=== PATIENT | male | born 1950 | race Caucasian/White ===

== ENCOUNTER 2017-06-16 11:15 | Outpatient (CLI) | payer MEDICARE, OTHER ==
[2017-06-16 12:31] LABS: ALBUMIN/GLOBULIN RATIO 1.4 (1.0-2.2); BILIRUBIN,TOTAL 0.8 mg/dL (0.2-1.0); BUN - BLOOD UREA NITROGEN 15 mg/dL (6-20); CARBON DIOXIDE - CO2 31 mmol/L (21-32); CHLORIDE 105 mmol/L (101-111); CHOL/HDL RATIO 6.4 (<5.0); CHOLESTEROL 262 mg/dL; GFR - MDRD 75 (>89); GLUCOSE 100 mg/dL (70-100); HDL CHOLESTEROL 41 mg/dL; LDL/HDL RATIO 5.1 (<3.6); POTASSIUM 4.5 mmol/L (3.5-5.0); SODIUM 141 mmol/L (135-145); TOTAL PROTEIN 6.8 g/dL (6.7-8.2); TRIGLYCERIDES 58 mg/dL; VLDL CHOLESTEROL 12 mg/dL
== END 2017-06-16 11:16 | disposition home or self-care (01) ==
LOC: LAB 11:15
PROVIDERS: ATTEND Family Medicine
DX: E78.5 Hyperlipidemia, unspecified (principal); R97.20 Elevated prostate specific antigen [PSA]
CPT/HCPCS: 36415; 80053; 80061; G0103; 84153

== ENCOUNTER 2017-07-28 12:15 | Outpatient (CLI) | payer MEDICARE, OTHER | END 2017-07-28 12:16 | disposition home or self-care (01) | LOC: LAB.WCP 12:15 | PROVIDERS: ATTEND Family Medicine | DX: N39.0 Urinary tract infection, site not specified (principal) | CPT/HCPCS: 87086 ==

== ENCOUNTER 2018-09-04 11:35 | Outpatient (CLI) | payer MEDICARE, OTHER ==
[2018-09-04 12:32] LABS: ALBUMIN 4.1 g/dL (3.2-5.5); ALBUMIN/GLOBULIN RATIO 1.6 (1.0-2.2); ALKALINE PHOSPHATASE 65 IU/L (42-121); ALT ALANINE AMINOTRANSFERASE 26 IU/L (10-60); AST ASPARTATE AMINOTRANSFERASE 25 IU/L (10-42); BILIRUBIN,TOTAL 0.8 mg/dL (0.2-1.0); BUN - BLOOD UREA NITROGEN 15 mg/dL (6-20); CALCIUM 9.1 mg/dL (8.5-10.3); CARBON DIOXIDE - CO2 31 mmol/L (21-32); CHLORIDE 102 mmol/L (101-111); CHOL/HDL RATIO 5.9 (<5.0); CHOLESTEROL 253 mg/dL; CREATININE 1.1 mg/dL (0.6-1.2); GFR - MDRD 67 (>89); GLUCOSE 98 mg/dL (70-100); HDL CHOLESTEROL 43 mg/dL; LDL CHOLESTEROL,CALCULATED 195 mg/dL; LDL/HDL RATIO 4.5 (<3.6); SODIUM 142 mmol/L (135-145); TOTAL PROTEIN 6.6 g/dL (6.7-8.2); VLDL CHOLESTEROL 15 mg/dL
== END 2018-09-04 11:36 | disposition home or self-care (01) ==
LOC: LAB 11:35
PROVIDERS: ATTEND Family Medicine
DX: E78.5 Hyperlipidemia, unspecified (principal); R97.20 Elevated prostate specific antigen [PSA]
CPT/HCPCS: 36415; 80053; 80061; 83721; 84153

== ENCOUNTER 2019-08-07 11:44 | Outpatient (CLI) | payer MEDICARE, OTHER ==
[2019-08-07 12:57] LABS: ALBUMIN 4.1 g/dL (3.2-5.5); ALBUMIN/GLOBULIN RATIO 1.5 (1.0-2.2); ALKALINE PHOSPHATASE 59 IU/L (42-121); ALT ALANINE AMINOTRANSFERASE 25 IU/L (10-60); AST ASPARTATE AMINOTRANSFERASE 22 IU/L (10-42); BILIRUBIN,TOTAL 0.6 mg/dL (0.2-1.0); BUN - BLOOD UREA NITROGEN 13 mg/dL (6-20); CALCIUM 9.1 mg/dL (8.5-10.3); CARBON DIOXIDE - CO2 31 mmol/L (21-32); CHLORIDE 102 mmol/L (101-111); CHOL/HDL RATIO 6.2 (<5.0); CHOLESTEROL 290 mg/dL; GFR - MDRD 74 (>89); GLUCOSE 96 mg/dL (70-100); HDL CHOLESTEROL 47 mg/dL; LDL CHOLESTEROL,CALCULATED 217 mg/dL; LDL/HDL RATIO 4.6 (<3.6); SODIUM 140 mmol/L (135-145); TOTAL PROTEIN 6.8 g/dL (6.7-8.2); VLDL CHOLESTEROL 26 mg/dL
== END 2019-08-07 11:45 | disposition home or self-care (01) ==
LOC: LAB 11:44
PROVIDERS: ATTEND Family Medicine
DX: E78.5 Hyperlipidemia, unspecified (principal); R97.20 Elevated prostate specific antigen [PSA]
CPT/HCPCS: 36415; 80053; 80061; 83721; 84153

== ENCOUNTER 2020-06-23 07:00 | Outpatient (CLI) | payer MEDICARE, OTHER | END 2020-06-23 23:59 | disposition home or self-care (01) | LOC: LAB.R 07:00 | PROVIDERS: ATTEND Physician Assistant Medical | DX: R30.0 Dysuria (principal) | CPT/HCPCS: 87077; 87086 ==

== ENCOUNTER 2020-06-23 08:00 | Outpatient (CLI) | payer MEDICARE, OTHER | END 2020-06-23 23:59 | disposition home or self-care (01) | LOC: LAB.WCP 08:00 | PROVIDERS: ATTEND Physician Assistant Medical | DX: R30.0 Dysuria (principal) | CPT/HCPCS: 81002 ==

== ENCOUNTER 2020-06-30 08:00 | Outpatient (CLI) | payer MEDICARE, OTHER | END 2020-06-30 23:59 | disposition home or self-care (01) | LOC: LAB.R 08:00 | PROVIDERS: ATTEND Nurse Practitioner Family | DX: R30.0 Dysuria (principal) | CPT/HCPCS: 87086 ==

== ENCOUNTER 2021-02-02 08:00 | Outpatient (CLI) | payer MEDICARE, OTHER ==
[2021-02-02 19:25] LABS: ALBUMIN 4.3 g/dL (3.2-5.5); ALBUMIN/GLOBULIN RATIO 1.7 (1.0-2.2); ALKALINE PHOSPHATASE 66 IU/L (42-121); ALT ALANINE AMINOTRANSFERASE 24 IU/L (10-60); AST ASPARTATE AMINOTRANSFERASE 24 IU/L (10-42); BILIRUBIN,TOTAL 0.7 mg/dL (0.2-1.0); BUN - BLOOD UREA NITROGEN 13 mg/dL (6-20); CALCIUM 9.2 mg/dL (8.5-10.3); CARBON DIOXIDE - CO2 29 mmol/L (21-32); CHLORIDE 104 mmol/L (101-111); CHOL/HDL RATIO 4.1 (<5.0); CHOLESTEROL 177 mg/dL; CREATININE 1.1 mg/dL (0.6-1.2); GFR - MDRD 66 (>89); GLUCOSE 68 mg/dL (70-100); HDL CHOLESTEROL 43 mg/dL; LDL CHOLESTEROL,CALCULATED 118 mg/dL; LDL/HDL RATIO 2.7 (<3.6); POTASSIUM 3.8 mmol/L (3.5-5.0); SODIUM 141 mmol/L (135-145); TOTAL PROTEIN 6.9 g/dL (6.7-8.2); TRIGLYCERIDES 82 mg/dL; VLDL CHOLESTEROL 16 mg/dL
== END 2021-02-02 23:59 | disposition home or self-care (01) ==
LOC: LAB.WCP 08:00
PROVIDERS: ATTEND Family Medicine
DX: E78.49 Other hyperlipidemia (principal); R97.20 Elevated prostate specific antigen [PSA]
CPT/HCPCS: 36415; 80053; 80061; 83721; G0103; 84153

== ENCOUNTER 2021-12-09 08:00 | Outpatient (CLI) | payer MEDICARE, OTHER | END 2021-12-09 23:59 | LOC: LAB.N 08:00 | PROVIDERS: ATTEND Family Medicine | DX: R30.0 Dysuria (principal) | CPT/HCPCS: 87077; 87086 ==

== ENCOUNTER 2022-02-21 13:03 | Emergency (ER) | payer MEDICARE, OTHER ==
[2022-02-21] MEDS ORDERED: DEXAMETHASONE 10 MG/ML VIAL PO STA (13:35)
[2022-02-21] MEDS ORDERED: BENZONATATE 100 MG CAPSULE PO STA (13:35)
[2022-02-21] MEDS ORDERED: PSEUDOEPHEDRINE 30 MG TABLET PO STA (13:35)
[2022-02-21] MEDS ORDERED: CHERRY SYRUP 10 ML UDC PO ONE (13:35)
--- NOTE | 2022-02-21 13:39 | ED Physician Documentation ---
History of Present Illness - Stated complaint Stated Complaint: EAR PX/COUGH/SORE THROAT - Chief complaint Chief Complaint: Heent - History obtained from History obtained from: Patient, Family - History of Present Illness Pain level max: 6 Pain level now: 4 - Additonal information Additional information: Patient is a 71-year-old gentleman brought in to the emergency department with his today. He states that for the past several days he has had a sore throat, dry cough, right ear pain. Nothing seems to make it better or worse. Denies any fevers to me. He does have a catheter in place, urology is monitoring and managing this. He had been on antibiotics recently for UTI. No back pain or abdominal pain. Has had both Covid vaccinations and booster. No known Covid exposures. Review of Systems Constitutional: denies: Fever Nose: reports: Congestion Throat: reports: Sore throat Respiratory: reports: Cough GI: denies: Abdominal Pain, Nausea, Vomiting, Diarrhea, Hematemesis : denies: Dysuria, Frequency, Hesitancy Skin: denies: Rash Musculoskeletal: denies: Neck pain, Back pain Neurologic: reports: Headache (headache yesterday, none today) PD PAST MEDICAL HISTORY - Past Medical History Past Medical History: Yes Cardiovascular: Other Respiratory: None Endocrine/Autoimmune: None GI: None : None HEENT: None Psych: None Musculoskeletal: None Derm: None - Past Surgical History HEENT: Tonsil/Adenoidectomy - Present Medications Home Medications: Ambulatory Orders Medication Instructions Recorded Confirmed Benzonatate [Tessalon] 200 mg PO TID PRN #30 cap 02/21/22 Cetirizine HCl/Pseudoephedrine 1 each PO BID PRN #30 ea 02/21/22 [Zyrtec-D Tablet] Rosuvastatin Calcium [Ezallor 10 mg PO DAILY 02/21/22 02/21/22 Sprinkle] Tamsulosin [Flomax] 0.4 mg PO DAILY 02/21/22 02/21/22 - Allergies Allergies/Adverse Reactions: Allergies Allergy/AdvReac Type Severity Reaction Status Date / Time No Known Drug Allergies Allergy Verified 02/21/22 13:13 PD ED PE NORMAL - Vitals Vital signs reviewed: Yes - General General: Alert and oriented X 3, No acute distress, Well developed/nourished - HEENT HEENT: PERRL, Moist mucous membranes, Other (Left TM is normal. Right TM is bulging with clear fluid. No erythema. No purulence. The oropharynx shows erythema to the right peritonsillar area. Uvula midline. Normal phonation. No trismus. No exudates) - Neck Neck: Supple, no meningeal sign - Cardiac Cardiac: RRR, Strong equal pulses - Respiratory Respiratory: No respiratory distress, Clear bilaterally - Abdomen Abdomen: Soft, Non tender, Non distended - Back Back: No CVA TTP - Derm Derm: Warm and dry - Extremities Extremities: No edema - Neuro Neuro: Alert and oriented X 3 - Psych Psych: Normal mood, Normal affect Results - Vitals Vitals: Vital Signs - 24 hr 02/21/22 02/21/22 13:07 15:13 Temperature 36.7 C 36.8 C Heart Rate 114 H 102 H Respiratory 18 18 Rate Blood Pressure 141/87 H 147/87 H O2 Saturation 95 97 Oxygen O2 Source Room air - Labs Labs: Laboratory Tests 02/21/22 13:53 Group A Strep Rapid Negative - Rads (name of study) Chest x-ray Radiology: Final report received, EMP read contemporaneously, See rad report (Right lower lobe scarring versus atelectasis.) PD MEDICAL DECISION MAKING - ED course Complexity details: reviewed results, re-evaluated patient, considered differential, d/w patient ED course: Patient is well-appearing, nontoxic. Afebrile. No hypoxia. No respiratory distress. Covid test sent. Negative rapid strep. Negative chest x-ray. Will place on decongestants and cough medication for home. We will continue supportive care. Patient counseled regarding signs and symptoms for which I believe and urgent re-evaluation would be necessary. Patient with good understanding of and agreement to plan and is comfortable going home at this time This document was made in part using voice recognition software. While efforts are made to proofread this document, sound alike and grammatical errors may occur. Departure - Departure Disposition: 01 Home, Self Care Clinical Impression: Viral URI Condition: Good Instructions: ED Viral Syndrome Follow-Up: your,dooctor in 1 week [Other] Prescriptions: Benzonatate [Tessalon] 200 mg PO TID PRN #30 cap PRN Reason: Cough Cetirizine HCl/Pseudoephedrine [Zyrtec-D Tablet] 1 each PO BID PRN #30 ea PRN Reason: nasal congestion Comments: Drink plenty of fluids. Return if you worsen. You can use Motrin or Tylenol as needed for pain. The decongestant should help as well. Your Covid test will be back in 1 to 2 days, you can check your results at the patient portal on the [employer] website . Your prescriptions were sent to the [facility] pharmacy. Discharge Date/Time: 02/21/22 15:15
[2022-02-21 14:17] LABS: RAPID STREP SCREEN Negative (Negative)
--- NOTE | 2022-02-21 14:28 | XRAY Report ---
PROCEDURE: Chest 2 View X-Ray INDICATIONS: cough TECHNIQUE: 2 view(s) of the chest. COMPARISON: None. FINDINGS: SUPPORT DEVICES: None. LUNGS/PLEURA: Linear density in the right lower lung zone, compatible plate atelectasis/scar. No foca l consolidation, pleural effusion or space-occupying pneumothorax. MEDIASTINUM: The cardiomediastinal silhouette is within normal limits. BONES/SOFT TISSUES: No acute abnormality. IMPRESSION: 1.Right basilar plate atelectasis/scar. Reviewed by: Matt Alatorre MD on 02/21/2022 2:27 PM PDT Approved by: Matt Alatorre MD on 02/21/2022 2:27 PM PDT Station ID: [id number]
[2022-02-21 15:15] VITALS: BP 147/87
== END 2022-02-21 15:15 | disposition home or self-care (01) ==
LOC: ED 13:03
DX: J06.9 Acute upper respiratory infection, unspecified (principal); Z20.822 Contact with and (suspected) exposure to COVID-19
CPT/HCPCS: 71046; 87070; 87430; 99283; 99284; A9270; U0004

== ENCOUNTER 2022-03-04 18:08 | Emergency (ER) | payer MEDICARE, OTHER ==
[2022-03-04] MEDS ORDERED: FAMOTIDINE 20 MG TABLET PO STA (18:53)
[2022-03-04] MEDS ORDERED: LIDOCAINE VISCOUS 2% 15 ML UDC MM STA (18:53)
[2022-03-04] MEDS ORDERED: MAG HYDROX/AL HYDROX/SIMETH 30 ML UDC PO STA (18:53)
[2022-03-04] MEDS ORDERED: SUCRALFATE 1 GM/10 ML UDC PO STA (18:53)
[2022-03-04 19:11] LABS: BILIRUBIN,URINE NEGATIVE (NEGATIVE); GLUCOSE, URINE (UA) NEGATIVE (NEGATIVE); KETONES,URINE (UA) NEGATIVE (NEGATIVE); LEUKOCYTE ESTERASE, URINE SMALL (NEGATIVE); NITRITE,URINE NEGATIVE (NEGATIVE); OCCULT BLOOD,URINE MODERATE (NEGATIVE); PROTEIN,URINE 100 mg/dL (NEGATIVE); UROBILINOGEN,URINE 0.2 (NORMAL) E.U./dL (NORMAL)
[2022-03-04 19:13] LABS: CLARITY,URINE SL. CLOUDY (CLEAR)
--- NOTE | 2022-03-04 19:13 | XRAY Report ---
PROCEDURE: Chest 2 View X-Ray INDICATIONS: cough TECHNIQUE: 2 view(s) of the chest. COMPARISON: 02/21/2022.. FINDINGS: Surgical changes and devices: None. Lungs and pleura: No pleural effusions or pneumothorax. Focal opacity noted in the left lung base co ncerning for pneumonia. Linear opacity noted in the right middle lobe likely represent atelectasis. Mediastinum: Mediastinal contours are normal. Heart size is normal. Bones and chest wall: No suspicious bony abnormalities. Soft tissues appear unremarkable. IMPRESSION: 1. Left lower lobe pneumonia. 2. Right middle lobe atelectasis. Reviewed by: Vickie Germain MD, PhD on 03/04/2022 7:12 PM PDT Approved by: Vickie Germain MD, PhD on 03/04/2022 7:12 PM PDT Station ID: [id number]
[2022-03-04 19:15] LABS: BASOPHILS % (AUTO) 0.3 %; EOSINOPHILS # (AUTO) 0.2 10^3/uL (0.0-0.7); HCT - HEMATOCRIT 43.7 % (42.0-52.0); HGB - HEMOGLOBIN 14.2 g/dL (14.0-18.0); LYMPHOCYTES # (AUTO) 1.2 10^3/uL (1.5-3.5); LYMPHOCYTES % (AUTO) 15.8 %; MEAN CORPUSCULAR HGB CONC 32.5 g/dL (32.0-36.0); MEAN CORPUSCULAR VOLUME 89.2 fL (80.0-94.0); MEAN PLATELET VOLUME 9.5 fL (7.4-11.4); MONOCYTES # (AUTO) 0.7 10^3/uL (0.0-1.0); MONOCYTES % (AUTO) 8.9 %; NEUTROPHILS # (AUTO) 5.5 10^3/uL (1.5-6.6); NEUTROPHILS % (AUTO) 71.9 %; PLT - PLATELET COUNT 269 10^3/uL (130-450); RED CELL DISTRIBUTION WIDTH 12.3 % (12.0-15.0); WHITE BLOOD COUNT 7.7 x10^3/uL (4.8-10.8)
[2022-03-04 19:22] LABS: BACTERIA,URINE Few /HPF (None Seen); RBC,URINE TNTC /HPF (0-5); SQUAMOUS EPITHELIAL CELL,UR RARE Squamous (<= Few); WBC CLUMPS,URINE PRESENT; WBC,URINE >25 /HPF (0-3)
--- NOTE | 2022-03-04 19:28 | ED Physician Documentation ---
History of Present Illness - Stated complaint Stated Complaint: COUGH/NOT EATING/BAD TASTE IN MOUTH/NAUSEA - Chief complaint Chief Complaint: General - History obtained from History obtained from: Patient, Family - History of Present Illness Timing: How many weeks ago (2) Pain level max: 5 Pain level now: 5 - Additonal information Additional information: 71-year-old male presents to the emergency department stating he has been coughing for the past 2 weeks. No fevers. Was seen here previously with a negative x-ray and negative COVID test. He states occasionally he will feel a sour/medicinal taste in the back of his mouth. Has had some nausea. He has also had dysuria and urinary frequency. He is seeing a urologist for this and recently started Flomax. The cough is mostly dry. Nothing seems to make it better or worse. Review of Systems Ten Systems: 10 systems reviewed and negative Constitutional: denies: Fever, Chills Ears: denies: Ear pain Nose: denies: Rhinorrhea / runny nose, Congestion Throat: denies: Sore throat Cardiac: denies: Chest pain / pressure, Palpitations Respiratory: denies: Dyspnea GI: reports: Nausea : reports: Dysuria, Frequency, Hesitancy Skin: denies: Rash Musculoskeletal: denies: Neck pain, Back pain PD PAST MEDICAL HISTORY - Past Medical History Cardiovascular: Other Respiratory: None Endocrine/Autoimmune: None GI: None : Benign prostate hypertrophy, Other HEENT: None Psych: None Musculoskeletal: None Derm: None Other Past Medical History: UTI and catheter recently - Past Surgical History Past Surgical History: No HEENT: Tonsil/Adenoidectomy - Present Medications Home Medications: Ambulatory Orders Medication Instructions Recorded Confirmed Benzonatate [Tessalon] 200 mg PO TID PRN #30 cap 02/21/22 Cetirizine HCl/Pseudoephedrine 1 each PO BID PRN #30 ea 02/21/22 [Zyrtec-D Tablet] Rosuvastatin Calcium [Ezallor 10 mg PO DAILY 02/21/22 02/21/22 Sprinkle] Tamsulosin [Flomax] 0.4 mg PO DAILY 02/21/22 02/21/22 Cefpodoxime Proxetil [Vantin] 200 mg PO Q12H #28 tablet 03/04/22 Doxycycline Monohydrate 100 mg PO BID #14 cap 03/04/22 Famotidine [Pepcid] 20 mg PO BID #60 tablet 03/04/22 - Allergies Allergies/Adverse Reactions: Allergies Allergy/AdvReac Type Severity Reaction Status Date / Time No Known Drug Allergies Allergy Verified 03/04/22 18:10 - Social History Does the pt smoke?: No Smoking Status: Never smoker - POLST Patient has POLST: No PD ED PE NORMAL - Vitals Vital signs reviewed: Yes - General General: Alert and oriented X 3, No acute distress - HEENT HEENT: PERRL, Ears normal, Moist mucous membranes, Pharynx benign - Neck Neck: Supple, no meningeal sign - Cardiac Cardiac: RRR, Strong equal pulses - Respiratory Respiratory: No respiratory distress, Clear bilaterally - Abdomen Abdomen: Soft, Non tender, Non distended - Back Back: No CVA TTP, No spinal TTP - Derm Derm: Warm and dry, No rash - Extremities Extremities: No edema, No calf tenderness / cord - Neuro Neuro: Alert and oriented X 3 - Psych Psych: Normal mood, Normal affect Results - Vitals Vitals: Vital Signs - 24 hr 03/04/22 03/04/22 03/04/22 18:10 18:49 20:17 Temperature 36.5 C 36.6 C Heart Rate 94 74 Respiratory 16 18 18 Rate Blood Pressure 160/90 H 145/88 H O2 Saturation 96 99 03/04/22 20:46 Temperature 36.6 C Heart Rate 84 Respiratory 18 Rate Blood Pressure 144/78 H O2 Saturation 98 Oxygen O2 Source Room air - Labs Labs: Laboratory Tests 03/04/22 03/04/22 03/04/22 18:50 19:10 19:10 WBC 7.7 RBC 4.90 Hgb 14.2 Hct 43.7 MCV 89.2 MCH 29.0 MCHC 32.5 RDW 12.3 Plt Count 269 MPV 9.5 Neut # (Auto) 5.5 Lymph # (Auto) 1.2 L Tift # (Auto) 0.7 Eos # (Auto) 0.2 Baso # (Auto) 0.0 Absolute Nucleated RBC 0.00 Nucleated RBC % 0.0 Sodium 140 Potassium 3.5 Chloride 103 Carbon Dioxide 28 Anion Gap 9.0 BUN 11 Creatinine 1.1 Estimated GFR (MDRD) 66 L Glucose 104 H Calcium 8.8 Total Bilirubin 0.7 AST 15 ALT 15 Alkaline Phosphatase 62 Total Protein 6.9 Albumin 3.9 Globulin 3.0 Albumin/Globulin Ratio 1.3 Lipase 28 Urine Color YELLOW Urine Clarity SL. CLOUDY Urine pH 6.0 Ur Specific [place] 1.015 Urine Protein 100 H Urine Glucose (UA) NEGATIVE Urine Ketones NEGATIVE Urine Occult Blood MODERATE H Urine Nitrite NEGATIVE Urine Bilirubin NEGATIVE Urine Urobilinogen 0.2 (NORMAL) Ur Leukocyte Esterase SMALL H Urine RBC TNTC H Urine WBC >25 H Urine WBC Clumps PRESENT Ur Squamous Epith Cells RARE Squamous Urine Bacteria Few Ur Microscopic Review INDICATED Urine Culture Comments INDICATED - Rads (name of study) Chest x-ray Radiology: Final report received, EMP read contemporaneously, See rad report (Left lower lobe pneumonia) PD MEDICAL DECISION MAKING - ED course Complexity details: reviewed results, re-evaluated patient, considered d ifferential, d/w patient, d/w family ED course: 71-year-old male with cough, found to have left lower lobe pneumonia on chest x- ray. Also appears to have a UTI. We will place on cefdinir and doxycycline for home. Patient also complains of a sour taste in his throat, worse with lying down. Possible GERD? No evidence of abscess. Normal phonation. No trismus. Normal oropharyngeal exam. We will try treating him for GERD and see how he progresses. No hypoxia or respiratory distress. Patient counseled regarding signs and symptoms for which I believe and urgent re-evaluation would be necessary. Patient with good understanding of and agreement to plan and is comfortable going home at this time This document was made in part using voice recognition software. While efforts are made to proofread this document, sound alike and grammatical errors may occur. Departure - Departure Disposition: Home, Self Care Clinical Impression: UTI (urinary tract infection) Qualifiers: Urinary tract infection type: acute cystitis Hematuria presence: without hematuria Qualified Code(s): N30.00 - Acute cystitis without hematuria Pneumonia Qualifiers: Pneumonia type: due to unspecified organism Laterality: left Lung location: lower lobe of lung Qualified Code(s): J18.9 - Pneumonia, unspecified organism GERD (gastroesophageal reflux disease) Qualifiers: Esophagitis presence: esophagitis presence not specified Qualified Code(s): K21.9 - Gastro-esophageal reflux disease without esophagitis Condition: Good Instructions: ED GERD, ED Pneumonia Adult, ED UTI Cystitis Male Follow-Up: Nell Eng DO [Primary Care Provider] - Within 1 week Prescriptions: Doxycycline Monohydrate 100 mg PO BID #14 cap Famotidine [Pepcid] 20 mg PO BID #60 tablet Cefpodoxime Proxetil [Vantin] 200 mg PO Q12H #28 tablet Comments: Please take all antibiotics until gone. Please follow-up with your doctor for further care. Also follow-up with the urologist for further evaluation of your urinary issues. Drink plenty of fluids and rest. Your doctor may want to consider an endoscopy to see if you have evidence of gastroesophageal reflux. Your prescriptions were sent to the [facility] pharmacy. Discharge Date/Time: 03/04/22 20:46
[2022-03-04 19:33] LABS: ALBUMIN 3.9 g/dL (3.2-5.5); ALBUMIN/GLOBULIN RATIO 1.3 (1.0-2.2); BILIRUBIN,TOTAL 0.7 mg/dL (0.2-1.0); CALCIUM 8.8 mg/dL (8.5-10.3); CREATININE 1.1 mg/dL (0.6-1.2); POTASSIUM 3.5 mmol/L (3.5-5.0); TOTAL PROTEIN 6.9 g/dL (6.7-8.2)
[2022-03-04] MEDS ORDERED: LIDOCAINE 1% 2 ML VIAL MC ONE (20:00)
[2022-03-04] MEDS ORDERED: cefTRIAXone 1 GM VIAL IM STA (20:00)
[2022-03-04] MEDS ORDERED: cefTRIAXone 1 GM VIAL IVP STA (20:03)
[2022-03-04 20:47] VITALS: BP 144/78
== END 2022-03-04 20:46 | disposition home or self-care (01) ==
LOC: ED 18:08
DX: J18.9 Pneumonia, unspecified organism (principal); N30.00 Acute cystitis without hematuria; K21.9 Gastro-esophageal reflux disease without esophagitis
CPT/HCPCS: 36415; 71046; 80053; 81001; 83690; 85025; 87086; 96374; 99284; A9270; 81003

== ENCOUNTER 2022-03-07 15:45 | Outpatient (CLI) | payer MEDICARE, OTHER | END 2022-03-07 23:59 | disposition home or self-care (01) | LOC: LAB.WCP 15:45 | PROVIDERS: ATTEND Physician Assistant | DX: N34.2 Other urethritis (principal); R30.0 Dysuria | CPT/HCPCS: 87086 ==